=== PATIENT | female | born 1990 | race Caucasian/White ===

== ENCOUNTER → 2017-04-01 | Outpatient (CLI) | payer OTHER ==
[~2017-04-01] MED LIST: ALL60; ATOM60CA; BSP15; ERYC250; ESCI1TAB10; GNF1; QUET1TAB30; REVIEWED
== END | disposition home or self-care (01) ==
LOC: C.LABPVFM 14:13
PROVIDERS: ATTEND Family Medicine
DX: J02.9 Acute pharyngitis, unspecified (principal)

== ENCOUNTER → 2017-12-25 | Outpatient (CLI) | payer OTHER ==
[2017-12-25 13:27] LABS: HEMOGLOBIN A1C 5.2 % (4.5-5.6)
[2017-12-25 13:51] LABS: BLOOD UREA NITROGEN 8 mg/dl (7-18); CALCIUM 8.9 mg/dl (8.5-10.1); CARBON DIOXIDE 28 mmol/L (21-32); CREATININE 0.83 mg/dl (0.60-1.20); GLUCOSE 95 mg/dl (70-99); POTASSIUM 4.1 mmol/L (3.5-5.1); SODIUM 136 mmol/L (136-145)
== END | disposition home or self-care (01) ==
LOC: C.LABPVFM 10:03
PROVIDERS: ATTEND Nurse Practitioner Family
DX: Z13.1 Encounter for screening for diabetes mellitus (principal); R00.0 Tachycardia, unspecified

== ENCOUNTER → 2018-04-03 | Day surgery (SDC) | payer OTHER ==
[2018-03-19 08:19] VITALS: Ht 175.3 cm; Wt 131.8 kg
[2018-03-25 09:54] LABS: HEMATOCRIT 42.4 % (37-47); HEMOGLOBIN 14.5 g/dL (12.0-16.0); MEAN CELL VOLUME 88.5 fL (80-100); MEAN CORPUSCULAR HEMOGLOBIN 30.3 pg (25-34); MEAN CORPUSCULAR HGB CONC 34.2 g/dl (32-36); PLATELET COUNT 285 K/uL (130-400); RED CELL DISTRIBUTION WIDTH CV 13.4 % (11.5-14.5); RED CELL DISTRIBUTION WIDTH SD 43.6 fL (36.4-46.3); WHITE BLOOD COUNT 7.34 K/uL (4.8-10.8)
[2018-03-25 10:02] LABS: PTT PATIENT 27.5 SECONDS (21.0-31.0)
[2018-03-25 10:48] LABS: POTASSIUM 3.8 mmol/L (3.5-5.1)
[~2018-04-03] VITALS: Ht 175.3 cm; Wt 131.8 kg
[~2018-04-03] MED LIST changes: +ACETAMINOPHEN/HYDROCODONE ELIX 15 ML/CUP UDP PO PRN; -ALL60; -ATOM60CA; +ATROPINE SULFATE 0.1 MG/ML 5ML SYR IV PRN; +ATV/1 PO; +BACITRACIN/POLYMYXIN B OINT 90 APPLN/28.4 GM TUBE EXT ONE; -BSP15; +BUSP15TA70 PO; +CTP/1 PO; +DEXAMETHASONE SOD INJ 4 MG/ML VIAL ONE; -ERYC250; -ESCI1TAB10; +FENTANYL CITRATE INJ 50 MCG/1 ML 2 ML VIAL IV PRN; +FENTANYL CITRATE INJ 50 MCG/1 ML 2 ML VIAL ONE; -GNF1; +LABETALOL HCL IV 5 MG/ML 20ML IV PRN; +LACTATED RINGER'S 1000ML 1,000 ML IV SCH; +LIDOCAINE 2% JELLY 5 ML TUBE ONE; +LIDOCAINE HCL 2% 2 ML VIAL (20MG/ML) ONE; +LORA-388 PO; +MIDAZOLAM HCL 1 MG/ML 2ML VIAL ONE; +MULT-506 PO; +ONDANSETRON INJ 2 MG/ML 2 ML VIAL IV PRN; +ONDANSETRON INJ 2 MG/ML 2 ML VIAL ONE; +PROPOFOL IV EMULSION 10 MG/ML 20 ML VIAL ONE; -QUET1TAB30; -REVIEWED; +SERT-234 PO; +STR/80 PO; +SUCCINYLCHOLINE CHLORIDE 20 MG/ML 10 ML VIAL IV ONE
--- NOTE | 2018-04-03 11:50 | History & Physical Bridge - [place] ---
H&P Re-Evaluation Bridge Note: I have examined the patient, reviewed the History & Physical and in the interval since the performance of the History & Physical I have noted the following changes of clinical significance: No changes noted
--- NOTE | 2018-04-03 12:47 | [facility] Operative Report ---
Operative Report Operative Date April 03, 2018. Pre-Operative Diagnosis Recurrent Acute Tonsillitis, Tonsillar and Adenoid Hypertrophy Post-Operative Diagnosis Same Procedure(s) Performed Tonsillectomy, Adenoidectomy Surgeon Dr. Beckman [employer] Technician Installer Surgeon(s) None Estimated Blood Loss 10 mL Findings 1. 3+ ADENOIDS 2. 4+ TONSILS Specimens A. Right Tonsil B. Left Tonsil Anesthesia Type General I attest to the content of the Intraoperative Record and any orders documented therein. Any exceptions are noted below.
--- NOTE | 2018-04-03 13:17 | OPERATIVE REPORT ---
DATE OF OPERATION: 04/03/2018 PREOPERATIVE DIAGNOSES: 1. Recurrent acute tonsillitis. 2. Tonsillar hypertrophy. POSTOPERATIVE DIAGNOSES: 1. Recurrent acute tonsillitis. 2. Tonsillar hypertrophy. PROCEDURES: Tonsillectomy and adenoidectomy. SURGEON: Pelon Beckman M.D. ANESTHESIA: General endotracheal. ESTIMATED BLOOD LOSS: 10 mL FINDINGS: 1. Normal palate. 2. 3+ adenoids. 3. 4+ tonsils excised. SPECIMENS: Right and left tonsil sent separately for permanent pathologic assessment. COMPLICATIONS: None. INDICATIONS FOR THE PROCEDURE: The patient is a 27-year-old female with Asperger syndrome who has a history of recurrent acute and chronic tonsillitis who was found to have severe tonsillar hypertrophy. She presents for the above-mentioned procedure on an outpatient elective basis. DETAILS OF THE PROCEDURE: After informed consent had been obtained, the patient was wheeled to the operating room and placed on the operating table in the supine position. Monitors were placed. After induction of general endotracheal anesthesia, the table was turned 90 degrees and the patient's head and neck were gently extended. Antibiotic ointment was applied to the lips and a mouth gag was carefully inserted, opened, and stabilized on a roll of towels. The palate was inspected and this was found to be normal. A catheter was then inserted into the right nasal cavity and this was used to elevate the soft palate and uvula. A laryngeal mirror was used to inspect the nasopharynx and the intraoperative findings were 3+ adenoid tissue. This was removed using suction Bovie electrocautery while achieving hemostasis simultaneously. An Allis clamp was then used to grasp the right tonsil in the superior pole and Bovie electrocautery was used to remove the tonsil in the capsular plane with care to preserve the underlying mucosa and musculature of the anterior and posterior tonsillar pillars. The left tonsil was then removed in a similar fashion. The intraoperative findings were 4+ cryptic tonsils bilaterally. These were sent separately for permanent pathological assessment. The mouth gag was then released for 1 minute. This was reopened and hemostasis was confirmed. An orogastric tube was placed and the stomach was suctioned free of air and stomach contents. 2% lidocaine jelly was placed into the bilateral tonsillar fossae for added anesthetic effect. This marked the end of the case. The patient tolerated the procedure well and there were no apparent complications. The patient was extubated and transferred to recovery room in stable condition. I attest to the content of the Intraoperative Record and any orders documented therein. Any exception s are noted below.
[2018-04-03 14:10] VITALS: BP 128/69; PULSE 90; O2SAT 95
--- NOTE | 2018-04-03 14:23 | Anesthesia Progress Nt - [facility] ---
Anesthesia Post Op Note Date & Time April 03, 2018 at 14:22 Vital Signs Pain Intensity: 3 Vital Signs Past 12 Hours Date Time Temp Pulse Resp B/P (MAP) Pulse Ox O2 Delivery O2 Flow Rate FiO2 04/03/18 14:10 90 14 128/69 (88) 95 Room Air 04/03/18 13:48 36.5 100 14 123/76 (92) 97 Room Air 04/03/18 13:45 139/70 04/03/18 13:44 106 13 94 04/03/18 13:44 106 13 04/03/18 13:42 36.7 94 Room Air 04/03/18 13:41 107/72 04/03/18 13:39 106 9 95 04/03/18 13:39 100 9 04/03/18 13:36 150/70 04/03/18 13:34 100 6 04/03/18 13:34 99 6 100 04/03/18 13:33 152/73 04/03/18 13:32 105 10 100 04/03/18 13:32 105 10 04/03/18 13:30 142/91 04/03/18 13:27 104 18 04/03/18 13:27 107 18 100 04/03/18 13:26 122/70 04/03/18 13:22 100 14 100 04/03/18 13:22 101 14 04/03/18 13:21 112/74 04/03/18 13:17 108 14 98 04/03/18 13:17 107 14 04/03/18 13:16 96/76 04/03/18 13:12 107 15 100 04/03/18 13:12 106 15 04/03/18 13:11 137/72 04/03/18 13:07 112 13 04/03/18 13:07 36.4 16 16 110/74 100 Humidified Oxygen 6 Mask 04/03/18 13:07 111 13 110/74 99 04/03/18 11:32 36.7 98 16 125/86 (99) 100 Room Air Notes Mental Status: alert / awake / arousable, participated in evaluation Pt Amnestic to Procedure: Yes Nausea / Vomiting: adequately controlled Pain: adequately controlled Airway Patency, RR, SpO2: stable & adequate BP & HR: stable & adequate Hydration State: stable & adequate Anesthetic Complications: no major complications apparent
--- NOTE | 2018-04-03 14:28 | Discharge Instructions ---
Discharge Instructions Date of Service April 03, 2018. Admission Reason for Admission: Rec Acute Tonsillitis, Tonsillar Hypertrophy Discharge Discharge Diagnosis / Problem: SAME Discharge Goals Goal(s): Therapeutic intervention Activity Recommendations Activity Limitations: as noted below LIGHT ACTIVITY FOR 2 WEEKS . Current Hospital Diet Patient's current hospital diet: Full Liquid Diet Discharge Diet Recommended Diet: Full Liquid Diet Diet Texture: Mechanical Soft (ground) Procedures Procedures Performed: Tonsillectomy, Adenoidectomy Pending Studies Studies pending at discharge: no Medical Emergencies . Who to Call and When: Medical Emergencies: If at any time you feel your situation is an emergency, please call 911 immediately. . Non-Emergent Contact Non-Emergency issues call your: Surgeon . . "Provider Documentation" section prepared by Pelon Beckman. .
== END | disposition home or self-care (01) ==
LOC: X.SURG 10:41
DX: J03.91 Acute recurrent tonsillitis, unspecified (principal); F84.5 Asperger's syndrome; E66.01 Morbid (severe) obesity due to excess calories; Z68.41 Body mass index [BMI] 40.0-44.9, adult; F32.9 Major depressive disorder, single episode, unspecified; Z79.899 Other long term (current) drug therapy; Z82.49 Family history of ischemic heart disease and other diseases of the circulatory system; Z83.3 Family history of diabetes mellitus; Z80.3 Family history of malignant neoplasm of breast